=== PATIENT | male | born 1950 | race Caucasian/White ===

== ENCOUNTER → 2023-07-16 09:40 | Outpatient (CLI) | payer MEDICARE, OTHER, SELFPAY ==
--- NOTE | 2023-07-16 09:43 | DI.US.S_ITS ---
PROCEDURE: US ABDOMEN COMPLETE INDICATIONS: RIGHT FLANK PAIN TECHNIQUE: Real-time scanning was performed of the abdominal and retroperitoneal organs, with image documentation. COMPARISON: None. FINDINGS: Liver: The liver demonstrates enlarged size. The liver demonstrates generalized moderately increased echogenicity. This decreases ultrasound sensitivity for detection of hepatic masses. Gallbladder: Nonmobile gallstones can be seen within the gallbladder neck. There is an additional mobile gallstone measuring 8 mm. The gallbladder wall is mildly thickened at 4.2 mm. No specific pericholecystic fluid is seen. The sonographic Barney sign is negative. Biliary ducts: Intrahepatic bile ducts are non-dilated. Extrahepatic bile duct caliber measures 4 mm. Normal is 6-7 mm or less in diameter, or 10 mm or less post-cholecystectomy. Pancreas: Visualized portions of the pancreas are sonographically normal. Spleen: Spleen is normal in size and homogeneous in echotexture. Kidneys: Kidneys are normal in size and echotexture. Right kidney measures 13 cm long; left kidney measures 13.6 cm long. No hydronephrosis or nephrolithiasis. No solid masses. Aorta: Visualized aorta is normal in caliber at less than 3 cm. Iliacs: Proximal common iliac arteries are normal in caliber at less than 2.5 cm. IVC: Intrahepatic inferior vena cava is patent. Miscellaneous: No free abdominal fluid. IMPRESSION: Gallstones are seen within the gallbladder, with mild gallbladder wall thickening. No additional sonographic signs of cholecystitis are seen. No biliary dilatation. Enlarged, fatty infiltrated liver. Dictated by: Medardo Merritt M.D. on 07/16/2023 at 10:19 Approved by: Medardo Merritt M.D. on 07/16/2023 at 10:20
== END ==
PROVIDERS: PCP Family Medicine; Referring Provider Family Medicine; Visit Provider Family Medicine
DX: K80.20 Calculus of gallbladder without cholecystitis without obstruction (principal); K76.0 Fatty (change of) liver, not elsewhere classified; R10.9 Unspecified abdominal pain
CPT/HCPCS: 76700

== ENCOUNTER 2023-07-18 13:40 | Day surgery (SDC) | payer MEDICARE, OTHER, SELFPAY ==
--- NOTE | 2023-07-18 | PATH_ITS ---
[facility] Accession Number: [id number] . 01 Material submitted: . gallbladder - GALLBLADDER . 01 Diagnosis: Gallbladder, cholecystectomy: Cholelithiasis and chronic cholecystitis, with benign focal adenomyosis (i.e. adenomatous hyperplasia). Negative for dysplasia or malignancy. TXN 07/25/2023 1239 Local . 01 Electronically signed: . Tawfeq MD Sharad, Pathologist NPI- [id number] . 01 Gross description: . Received in formalin with two identifiers and gallbladder, is an intact gallbladder, 5.3 x 3.9 x 2.2 cm, with a yellow, unremarkable external surface. The cystic duct margin is inked blue, and no pericystic lymph node is identified. The lumen contains multiple dark roughened calculi measuring up to 1.0 cm in greatest dimension grossly obstructing the cystic duct and admixed with dark green mucoid bile. The mucosa is green and velvety with no discoloration, polyps, or lesions identified. The blackman average 0.2 cm thick with a martinez well-circumscribed nodule located at the fundus measuring 0.9 x 0.7 x 0.7 cm with a slightly mucoid cut surface. Optical Effects Camera Operator sections to include the cystic duct margin and fundus nodule are submitted in A1. ([id number]) /MRV 07/22/2023 1707 Local . 01 Pathologist provided ICD-10: K81.1 . 01 CPT . 538286 Performed at: [address] [id number] MD Johan Cardenas MD Phone: [phone]
[2023-07-18 14:23] VITALS: BP 129/69; PULSE 56; RESP 16; TEMP 36.8; O2SAT 95; BMI 31.1
--- NOTE | 2023-07-18 14:28 | PM.PREOP ---
Pre-operative Note Interval Note History & Physical reviewed/Exam performed by Physician: Yes Changes to H&P: No
[2023-07-18] MEDS: LACTATED RINGERS 1,000 ML 42 ML IV ×2 (14:41→15:46)
--- NOTE | 2023-07-18 14:59 | PM.OP.1 ---
Operative Date/Time/Diagnoses Date of procedure: 07/18/23 Time of procedure: 16:08 Pre-op diagnosis: Biliary colic Post-op diagnosis: other (Chronic cholecystitis) Procedure & Clinicians Procedure: Laparoscopic cholecystectomy Same procedure as scheduled: Yes Indications: 73-year-old male with biliary colic progressing to acute cholecystitis. Gallstone lodged within the neck gallbladder. Surgeon: Nilson Cotton Biological Aide: Primitivo Pillai Anesthesia Type: General Operative Notes Findings: Chronic cholecystitis Critical view of safety established Gallstones Specimen(s): other (Gallbladder) Estimated Blood Loss (mL): 75 Procedure in detail: The patient was placed supine on the table and bilateral lower extremity compression devices were applied. Anesthesia was induced they were intubated with an endotracheal tube and received 2g of Ancef. A time-out was performed. They were prepped and draped in sterile fashion. An infraumbilical incision was made. The fascia was elevated incised and the abdomen was entered atraumatically. A blunt tip 12mm balloon trocar was then inserted, pneumoperitoneum was established and inspection of the abdomen demonstrated no evidence of injury. They were placed head up and right side up and then a 11 mm port was placed high in the epigastrium and two 5mm in the right upper quadrant. There were numerous intra-abdominal adhesions to the right upper quadrant which were taken down using electrocautery. Gallbladder was thick-walled with a thick layer of creeping fat around consistent with chronic cholecystitis. Duodenum was adherent to the mid portion of gallbladder and was using sharp dissection. The gallbladder was grasped by the fundus and retracted over the liver and retracted laterally by the infundibulum. Using electrocautery the lateral plane between the gallbladder and the liver was opened towards the fundus. The gallbladder was then retracted laterally and the medial plane was developed in the same manner. With the gallbladder mobilized the bottom of the cystic plate was visualized. The hepatocystic triangle was meticulosly skeletonized with blunt dissection of fat and fibrous tissue from both the front and the back. Only two structures were then clearly seen entering the gallbladder the cystic duct and the cystic artery. With the critical view of safety fully established the cystic duct was clipped twice proximally and once distally using the 10 mm Weck hemoclip applied under direct visualization and then sharply divided. The cystic artery was divided in the same fashion. The gallbladder was removed from the liver bed using electro cautery. The liver bed was then inspected for hemostasis and this was achieved. The abdomen was irrigated with sterile saline and inspection was made that showed the clips in good position. There was small amount of oozing from the gallbladder fossa which was controlled using electrocautery and a piece of Surgicel. The specimen was removed using Endo-Catch. The abdomen was desufflated. The umbilical fascia was closed with 0 Vicryl in a [id number] fashion under direct visualization. Skin incisions were irrigated and closed with 4-0 Monocryl. 30 ml of 0.25% bupivacaine was infiltrated into the subcutaneous tissue of the incisions. The wounds were sealed with Dermabond. Patient emerged from anesthesia was extubated and transferred to recovery in stable condition. The sponge and instrument count at the end of the operation was correct. Complications: none Post-operative Condition: stable Disposition: same day surgery
[2023-07-18] MEDS: CEFAZOLIN 2 GM/100 ML PREMIX 100 ML IV (15:10)
--- NOTE | 2023-07-18 15:18 | SUR.OPER ---
Supine on padded OR bed, head on pillow, safety belt at thigh, left arm padded and tucked at side. Right arm secured on padded arm board <90 degrees abduction. Legs uncrossed. Padded footboard in place. Tape over blanket to secure lower legs.
[2023-07-18] MEDS: BUPIVACAINE 0.25% (PF) VIAL 30 ML INJ (15:24)
[2023-07-18 16:18] VITALS: BP 147/70; PULSE 46; RESP 14; TEMP 36.8; O2SAT 96
[2023-07-18 16:21] VITALS: BP 142/73; PULSE 47; RESP 16; O2SAT 96
[2023-07-18 16:26] VITALS: BP 139/59; PULSE 46; RESP 15; O2SAT 96
[2023-07-18] MEDS: OXYCODONE IR 5 MG TABLET PO (16:35)
[2023-07-18 16:38] VITALS: BP 125/62; PULSE 50; RESP 14; O2SAT 95
[2023-07-18 17:05] VITALS: BP 128/67; PULSE 52; RESP 16; O2SAT 95
== END 2023-07-18 17:15 | disposition home or self-care (01) ==
PROVIDERS: PCP Family Medicine; Referring Provider Surgery; Visit Provider Surgery
PROC: 0FT44ZZ Resection of Gallbladder, Percutaneous Endoscopic Approach (ICD-10-PCS; CPT 47562; principal; 2023-07-18 16:00)
DX: K80.10 Calculus of gallbladder with chronic cholecystitis without obstruction (principal); D13.5 Benign neoplasm of extrahepatic bile ducts
CPT/HCPCS: 47562; J0690; J1100; J1885; J2405; J2704; J3010

== ENCOUNTER 2024-12-30 06:24 | Emergency (ER) | payer MEDICARE, OTHER, SELFPAY ==
--- NOTE | 2024-12-30 06:26 | ED_ITS ---
HPI - General Adult <Bhavana De Los Santos DO - Last Filed: 12/31/24 05:53> General Chief complaint: Back Pain/Injury Stated complaint: Fell in kitchen, Possible broken left rib Time Seen by Provider: 12/30/24 06:26 Source: patient, RN notes reviewed and old records reviewed Mode of arrival: Ambulatory Limitations: no limitations History of Present Illness HPI narrative: 74-year-old male history of atrial fibrillation with prior ablation, patient states no anticoagulation, hypertension, dyslipidemia. Patient states this evening about 2:00 a.m. in the morning he fell in the kitchen falling backwards into an appliance. Has pain on the left lumbar region and up towards the ribs. Patient denies any midline pain denies any neck pain. States he did not hit his head. Denies any loss of consciousness. No chest pain, no shortness of breath. Denies any nausea or vomiting. No loss of bowel or bladder control, denies any other GI or urinary symptoms. No pain radiating down in his legs. No paresthesias. Patient states it is in the lower left ribs lumbar region feels like it is burning. Patient states he has had prior knee surgery x3. Denies any drug allergies. Denies any tobacco, did have alcohol last night, denies any recreational drugs. Patient defers anything for pain. Related Data Home Medications ?Medication ?Instructions ?Recorded ?Confirmed albuterol sulfate 90 mcg/actuation 2 puff inhalation Q 4-6H PRN Rash 07/17/23 08/01/23 aerosol inhaler (ProAir HFA) carvedilol 12.5 mg tablet 12.5 mg PO BID 07/17/2307/15 clobetasol 0.05 % topical ointment 1 applic topical BI D 07/17/23 08/01/23 diltiazem HCl 180 mg 180 mg PO DAILY 07/17/23 capsule,extended release 24 hr fluticasone propionate 50 2 spray intranasal DAILY 05/1008/01/23 mcg/actuation nasal spray,suspension (Children's Flonase Allergy Relief) gabapentin 300 mg capsule 300 mg PO DAILY 07/17/23 loratadine 10 mg tablet 10 mg PO DAILY PRN Sleep 05/1008/01/23 losartan 25 mg tablet 25 mg PO DAILY 07/17/2307/15 propafenone 225 mg tablet 225 mg PO Q12H 07/17/2307/15 zolpidem 10 mg tablet 10 mg PO BEDTIME 07/17/23 propafenone 225 mg 225 mg PO Q12H 07/18/2307/15 capsule,extended release 12 hr rosuvastatin 20 mg tablet 20 mg PO ONCE PM 07/18/23 zolpidem 10 mg tablet 10 mg PO DAILY PRN Sleep 06/0708/01/23 Previous Rx's ?Medication ?Instructions ?Recorded acetaminophen 325 mg capsule 650 mg (2 x 325 mg) PO QI D PRN 07/18/23 (Tylenol) pain #60 caps celecoxib 200 mg capsule (Celebrex) 200 mg PO BID #20 caps 07/18/23 docusate sodium 100 mg capsule 100 mg PO BID #30 caps 07/18/23 (Colace) oxycodone 5 mg tablet 5 mg PO Q6H PRN pain #30 tab s 07/18/23 hydrocodone 5 mg-acetaminophen 325 1 tab PO Q4-6H PRN pain #20 tabs 12/30/24 mg tablet Allergies Allergy/AdvReac Type Severity Reaction Status Date / Time No Known Drug Allergies Allergy Verified 12/30/24 06:33 Review of Systems <Bhavana De Los Santos DO - Last Filed: 12/31/24 05:53> Review of Systems ROS Unobtainable: All systems reviewed & are unremarkable except as noted in HPI and below Patient History <Bhavana De Los Santos DO - Last Filed: 12/31/24 05:53> Medical History Atrial fibrillation Hypertension Surgical History H/O cardiac radiofrequency ablation Hx of appendectomy Social History marital status: household members: spouse lives independently: Yes occupational status: previously employed Smoking Status: Never smoker alcohol intake: current substance use type: does not use alcohol intake frequency: 0-2 drinks per day Exam <Bhavana De Los Santos DO - Last Filed: 12/31/24 05:53> Narrative Exam Narrative: GEN: Patient appears in mild distress. HEAD: No evidence of trauma, no raccoon/Flores sign. NECK: Nontender, painless range of motion, trachea midline Negative Nexus criteria, no midline line tenderness, distracting injury, altered mental status, neuro deficit, recent EtOH. EYES: PERRLA, EOMI ENT: External inspection normal, trachea is midline, Nares are clear, no septal hematoma, no dental or oral injury, airway is normal and with normal occlusion, No bony tenderness RESP: Chest is nontender except for tenderness at the left posterior ribs XI 12 region. And has symmetric movement, no ecchymosis, breath sounds are normal no crackles, wheezes or rales CVS: Heart sounds are normal, no murmur noted, No JVD. ABG/GI: Nontender, soft, normal bowel sounds, no distention, no organomegaly, pelvic rock is negative NEURO: Oriented AOx3, neuro is grossly intact, sensation and motor is normal all 4 extremities moving, cranial nerves II through XII are intact, GCS is 15 PSYCH: Normal mood and affect SKIN: Intact, warm and dry, no crepitus and without decubitus, patient has erythema in the left lumbar region there some slight erythema and swelling, I no fluctuance. No ecchymosis. BACK: No CVA tenderness, no vertebral tenderness, no step-off's, no crepitus, patient does have tenderness of the left lower lumbar spine. Has not good range of motion but has some increased pain with rotation. EXT: Atraumatic, hips are nontender, no pedal edema, normal color and temperature, normal range of motion of extremities with normal tendon exam, 2+ pulses in all four extremities Initial Vital Signs Initial Vital Signs: Vital Signs Temperature 97.4 F L 12/30/24 06:32 Pulse Rate 66 12/30/24 06:32 Respiratory Rate 18 12/30/24 06:32 Blood Pressure 161/79 H 12/30/24 06:32 Pulse Oximetry 95 12/30/24 06:32 Oxygen Delivery Method Room Air 12/30/24 06:32 <Kaleb Gillette DO - Last Filed: 12/30/24 07:55> Initial Vital Signs Initial Vital Signs: Vital Signs Temperature 97.4 F L 12/30/24 06:32 Pulse Rate 66 12/30/24 06:32 Respiratory Rate 18 12/30/24 06:32 Blood Pressure 161/79 H 12/30/24 06:32 Pulse Oximetry 95 12/30/24 06:32 Oxygen Delivery Method Room Air 12/30/24 06:32 Course <Bhavana De Los Santos, DO - Last Filed: 12/31/24 05:53> Orders Ordered: ED Orders 12/30/24 06:34 CT lumbar spine wo con Stat XR ribs LT min 3V w CXR1V Stat Vital Signs Vital signs: Vital Signs - 8 hr 12/30/24 06:32 Temperature 97.4 F L Pulse Rate 66 Respiratory Rate 18 Blood Pressure 161/79 H Pulse Oximetry 95 Oxygen Delivery Method Room Air <Kaleb Gillette, DO - Last Filed: 12/30/24 07:55> Orders Ordered: ED Orders 12/30/24 06:34 CT lumbar spine wo con Stat XR ribs LT min 3V w CXR1V Stat Vital Signs Vital signs: Vital Signs - 8 hr 12/30/24 06:32 Temperature 97.4 F L Pulse Rate 66 Respiratory Rate 18 Blood Pressure 161/79 H Pulse Oximetry 95 Oxygen Delivery Method Room Air Medical Decision Making <Bhavana De Los Santos, DO - Last Filed: 12/31/24 05:53> [facility] [place] Narrative Medical decision making narrative: Patient signed out to Dr. Gillette while awaiting imaging. All lab wor,k vital signs, nurse triage note, medication list, previous ER visits, and all imaging studies reviewed. Chest x-ray showed no acute process. CT lumbar spine showed left. L1 and L2 transverse process fracture multilevel spondylitic changes of the lumbar spine. Patient given [place] prescription and to follow up with PCP. Differential diagnosis rib fracture contusion pneumothorax. <Kaleb Gillette, DO - Last Filed: 12/30/24 07:55> Imaging Data Chest x-ray: Radiologist's Impression: No acute cardiopulmonary abnormality. No rib fracture identified Extremity x-ray #1: Radiologist's Impression: Left L1 and 2 transverse process fracture. Multilevel spondylitic changes of the lumbar spine. [facility] [place] Narrative Medical decision making narrative: All lab wor,k vital signs, nurse triage note, medication list, previous ER visits, and all imaging studies reviewed. Chest x-ray showed no acute process. CT lumbar spine showed left. L1 and L2 transverse process fracture multilevel spondylitic changes of the lumbar spine. Patient given [place] prescription and to follow up with PCP. Differential diagnosis rib fracture contusion pneumothorax. Discharge Plan Departure Patient Disposition: Home Clinical Impression: Fracture of transverse process of lumbar vertebra Qualifiers: Encounter type: initial encounter Fracture type: closed Qualified Code(s): S32.009A - Unspecified fracture of unspecified lumbar vertebra, initial encounter for closed fracture Instructions: DI for Transverse Process Fracture Activity Restrictions/Additional Instructions: Return with new or worsening symptoms. Please follow up with PCP regarding transverse process fracture this week or next week. Take medicines as directed. Prescriptions: New hydrocodone-acetaminophen 5-325 mg tablet 1 tab PO Q4-6H PRN (Reason: pain) Qty: 20 0RF No Action carvedilol 12.5 mg tablet 12.5 mg PO BID Rx Instructions: must administer with a meal/food clobetasol 0.05 % ointment 1 applic topical BID diltiazem HCl 180 mg capsule,extended release 24hr 180 mg PO DAILY fluticasone propionate [Children's Flonase Allergy Rlf] 50 mcg/actuation spray,suspension 2 spray intranasal DAILY Rx Instructions: administer into each nostril gabapentin 300 mg capsule 300 mg PO DAILY loratadine 10 mg tablet 10 mg PO DAILY PRN (Reason: Sleep) losartan 25 mg tablet 25 mg PO DAILY albuterol sulfate [ProAir HFA] 90 mcg/actuation HFA aerosol inhaler 2 puff inhalation Q4-6H PRN (Reason: Rash) propafenone 225 mg tablet 225 mg PO Q12H zolpidem 10 mg tablet 10 mg PO BEDTIME zolpidem 10 mg Tablet 10 mg PO DAILY PRN (Reason: Sleep) rosuvastatin 20 mg tablet 20 mg PO ONCE PM propafenone 225 mg capsule,extended release 12 hr 225 mg PO Q12H celecoxib [Celebrex] 200 mg capsule 200 mg PO BID Qty: 20 0RF docusate sodium [Colace] 100 mg capsule 100 mg PO BID Qty: 30 0RF oxycodone 5 mg tablet 5 mg PO Q6H PRN (Reason: pain) Qty: 30 0RF acetaminophen [Tylenol] 325 mg capsule 650 mg PO QID PRN (Reason: pain) Qty: 60 0RF Referrals: Lore Sandoval DO [Primary Care Provider, Medical] Stand Alone Forms: Patient Portal/API
[2024-12-30 06:32] VITALS: BP 161/79; PULSE 66; RESP 18; TEMP 36.3; O2SAT 95; BMI 29.8
--- NOTE | 2024-12-30 06:34 | DI.RAD.S_ITS ---
PROCEDURE: XR RIBS LT MIN 3V W CXR1V INDICATIONS: fall, left posterior rib/lumbar region pain TECHNIQUE: 2 views of the ribs were acquired, along with a single view chest. COMPARISON: None. FINDINGS: Surgical changes and devices: None. Bones and chest wall: No fractures or dislocations. No suspicious bony lesions. Overlying soft tissues appear unremarkable. Moderate degenerate arthrosis of the left acromioclavicular joint. Lungs and pleura: No pleural effusions or pneumothorax. Calcified granuloma in the right upper lobe. No consolidation. Mediastinum: Mediastinal contours appear normal. Heart size is normal. IMPRESSION: No displaced rib fracture or pneumothorax. Dictated by: Felipe Carey M.D. on 12/30/2024 at 8:01 Approved by: Felipe Carey M.D. on 12/30/2024 at 8:02
--- NOTE | 2024-12-30 06:34 | DI.CT.S_ITS ---
PROCEDURE: CT LUMBAR SPINE WO CON INDICATIONS: fall, L posterior rib/lumbar region pain TECHNIQUE: Noncontrast 3 mm thick sections acquired from the T12 level to the sacrum. Sagittal and coronal reformats were constructed. For radiation dose reduction, the following was used: automated exposure control. COMPARISON: None. FINDINGS: Image quality: Excellent. Bones: Normal osseous alignment. No sagittal listhesis. No suspicious lytic or osseous blastic lesion. No compression deformity. Nondisplaced transverse fracture of the left posterior 12th rib, and the left transverse processes of L1 and L2. No extension to the vertebral body or pedicle. Degenerative changes of the bilateral sacroiliac joints with near bridging osteophytes along the anterior left sacroiliac joint. No sacral fracture. T12-L1: No bony spinal canal or neural foraminal stenosis. L1-L2: No bony spinal canal or neural foraminal stenosis. L2-L3: Mild spinal canal stenosis due to posteriorly projecting osteophytes. No bony neural foraminal stenosis. L3-L4: Mild spinal canal stenosis due to a symmetric bulging disc. Mild bilateral neural foraminal stenosis due to subarticular disc bulging disc. L4-L5: Mild spinal canal stenosis due to symmetric bulging disc. Left moderate and right mild neural foraminal stenosis L5-S1: No bony spinal canal or neural foraminal stenosis. Soft tissues: No retroperitoneal masses or hematomas. 2 mm nonobstructive stone in the left kidney lower pole calyx. Visualized aorta is normal in caliber. IMPRESSION: 1. Nondisplaced transverse fracture left posterior 12th rib 2. Nondisplaced fractures of the left transverse processes of L1 and L2. 3. Multilevel mild spinal canal stenosis from L2-3 through L4-5. 4. Multilevel neural foraminal stenosis reaches moderate on the left at L4-5. Dictated by: Felipe Carey M.D. on 12/30/2024 at 8:02 Approved by: Felipe Carey M.D. on 12/30/2024 at 9:03
== END 2024-12-30 07:58 | disposition home or self-care (01) ==
PROVIDERS: Emergency Provider Family Medicine; PCP Family Medicine
DX: S32.019A Unspecified fracture of first lumbar vertebra, initial encounter for closed fracture (principal); S32.029A Unspecified fracture of second lumbar vertebra, initial encounter for closed fracture; W18.09XA Striking against other object with subsequent fall, initial encounter
CPT/HCPCS: 71101; 72131; 99281; 99284